=== PATIENT | female | born 1945 | race Caucasian/White ===

== ENCOUNTER → 2023-07-23 13:08 | Outpatient (REF) | payer MEDICARE, SELFPAY | LOC: WDC 13:08 | PROVIDERS: ATTENDING PHYSICIAN Family Medicine | DX: Z12.31 Encounter for screening mammogram for malignant neoplasm of breast (principal) | CPT/HCPCS: 77063; 77067 ==

== ENCOUNTER → 2023-08-05 15:15 | Outpatient (REF) | payer MEDICARE, SELFPAY | LOC: HWRAD 15:15 | PROVIDERS: ATTENDING PHYSICIAN Family Medicine | DX: M54.12 Radiculopathy, cervical region (principal) | CPT/HCPCS: 72050 ==

== ENCOUNTER → 2024-07-28 13:26 | Outpatient (REF) | payer MEDICARE, SELFPAY | LOC: WDC 13:26 | PROVIDERS: ATTENDING PHYSICIAN Family Medicine | DX: Z12.31 Encounter for screening mammogram for malignant neoplasm of breast (principal) | CPT/HCPCS: 77063; 77067 ==

== ENCOUNTER → 2024-08-17 10:12 | Outpatient (REF) | payer MEDICARE, SELFPAY ==
[2024-08-17 10:45] LABS: % Basophils 1.1 % (0-2); % Eosinophils 4.3 % (0-6); % Lymphocytes 40.9 % (20.5-51.1); % Monocytes 8.1 % (1.7-9.3); % Neutrophils 45.6 % (42.2-75.2); Absolute Basophils 0.1 10^3/uL (0-0.2); Absolute Eosinophils 0.2 10^3/uL (0-0.7); Absolute Lymphocytes 1.8 10^3/uL (1.2-3.4); Absolute Monocytes 0.4 10^3/uL (0.1-0.6); Hematocrit 35.7 % (37.0-47.0); Mean Corp Hgb Conc. 33.6 g/dL (33.0-37.0); Mean Corpuscular Hgb 29.9 pg (27.0-31.0); Mean Corpuscular Volume 88.8 fL (81.0-99.0); Mean Platelet Volume 10.7 fL (7.4-10.4); Nucleated Red Blood Cells % 0 %; Platelet Count 275 10^3/uL (130-400); Red Blood Cell Count 4.02 10^6/uL (4.20-5.40); Red Cell Dist. Width 14.6 % (11.5-14.5); White Blood Cell Count 4.4 10^3/uL (4.8-10.8)
[2024-08-17 11:01] LABS: Erythrocyte Sed Rate 13 mm/hour (0-20)
[2024-08-17 11:19] LABS: ALT (SGPT) 12 U/L (0-35); AST (SGOT) 19 U/L (14-36); Albumin 4.2 g/dl (3.5-5.0); Alkaline Phosphatase 80 U/L (38-126); Blood Urea Nitrogen 23 mg/dl (7-17); Calcium 9.4 mg/dl (8.4-10.2); Carbon Dioxide 24 mmol/L (22-30); Chloride 106 mmol/L (98-107); Glucose 107 mg/dl (70-99); HDL Cholesterol 63 mg/dl; LDL Cholesterol, Calculated 120 mg/dl; Potassium 3.9 mmol/L (3.5-5.1); Sodium 141 mmol/L (135-145); Total Bilirubin 1.2 mg/dl (0.2-1.3); Total Cholesterol 199 mg/dl (50-199); Total Protein 6.8 g/dl (6.3-8.2); Triglyceride 82 mg/dl (10-149); Very Low Density Lipoprotein 16 mg/dl (0-30); eGFR > 60.00
[2024-08-17 17:20] LABS: Rheumatoid Agglutinin Less Than 10 IU (<10 IU)
[2024-08-18 16:56] LABS: ANA, IgG Reflex to HEp-2 Detected (None Detected)
[2024-08-20 00:32] LABS: ANA, HEp-2, IgG <1:80 (<1:80)
== END ==
LOC: REG 10:12
PROVIDERS: ATTENDING PHYSICIAN Family Medicine
DX: I10 Essential (primary) hypertension (principal); E78.00 Pure hypercholesterolemia, unspecified; I73.9 Peripheral vascular disease, unspecified; M79.10 Myalgia, unspecified site; H91.90 Unspecified hearing loss, unspecified ear; R29.3 Abnormal posture
CPT/HCPCS: 36415; 80053; 80061; 85025; 85652; 86038; 86039; 86140; 86430